=== PATIENT | female | born 1965 | race Caucasian/White ===

== ENCOUNTER → 2017-10-19 | Outpatient (CLI) | payer BC ==
[~2017-10-19] MED LIST: LEVAQUIN 750MG750 M1 PO; NORCO 325 MG-51 TAB PO; PRILOSEC 20MG20 MG PO
== END ==
LOC: MC.RAD 14:34
DX: Z12.31 Encounter for screening mammogram for malignant neoplasm of breast (principal); Z98.82 Breast implant status

== ENCOUNTER → 2018-06-30 | Outpatient (CLI) | payer BC | LOC: COL.RAD 14:10 | DX: G47.00 Insomnia, unspecified (principal); F41.9 Anxiety disorder, unspecified; R61 Generalized hyperhidrosis; R63.5 Abnormal weight gain; Z79.890 Hormone replacement therapy ==

== ENCOUNTER → 2019-01-06 | Outpatient (CLI) | payer BC | LOC: MC.RAD 11:21 | DX: Z12.31 Encounter for screening mammogram for malignant neoplasm of breast (principal); G47.00 Insomnia, unspecified; F41.9 Anxiety disorder, unspecified; Z79.890 Hormone replacement therapy ==

== ENCOUNTER → 2020-01-11 | Outpatient (CLI) | payer BC | LOC: MC.RAD 11:25 | DX: Z12.31 Encounter for screening mammogram for malignant neoplasm of breast (principal); Z98.82 Breast implant status ==

== ENCOUNTER → 2021-02-11 | Outpatient (CLI) | payer BC | LOC: MC.RAD 14:36 | DX: Z12.31 Encounter for screening mammogram for malignant neoplasm of breast (principal) ==

== ENCOUNTER → 2023-04-07 | Outpatient (CLI) | payer BC ==
[2004-08-23 06:02] VITALS: TEMP 97.7
== END ==
LOC: MC.RAD 09:42
DX: Z12.31 Encounter for screening mammogram for malignant neoplasm of breast (principal)